=== PATIENT | female | born 2005 | race Two or more races ===

== ENCOUNTER 2025-08-02 16:20 | Inpatient (IN) | payer OTHER ==
[~2025-08-02] VITALS: Ht 147.3 cm; Wt 53.0 kg
[2025-08-02 20:06] LABS: PLATELET COUNT (AUTO) 174 K/uL (150-450); RED BLOOD CELL COUNT(AUTO) 4.46 MIL/uL (4.00-5.20); RED CELL DISTRIBUTION WIDTH 14.0 % (11.5-14.5); WHITE BLOOD COUNT (AUTO) 9.4 K/uL (4.5-11.0)
[2025-08-02 20:19] LABS: CALCIUM, TOTAL 8.9 mg/dL (8.8-10.5); CREATININE 0.54 mg/dL (0.60-1.30); GLOMERULAR FILTR. RATE CALC > 60 mL/min (>60); GLUCOSE,RANDOM 131 mg/dL (70-110); SODIUM SERUM 137 mmol/L (136-145); UREA NITROGEN, BLOOD 6 mg/dL (7-18)
[2025-08-02] MEDS ORDERED: ZOLPIDEM TARTRATE 5 MG TABLET PO PRN (23:45)
[2025-08-02] MEDS ORDERED: HYDROCODONE/ACETAMINOPHEN 5-325 MG TABLET PO PRN (23:45)
[2025-08-02] MEDS ORDERED: ONDANSETRON HCL 4 MG/2 ML VIAL IVP PRN (23:45)
[2025-08-02] MEDS ORDERED: BISACODYL 10 MG RECTAL RECTAL SUPPOSITORY PR PRN (23:45)
[2025-08-02] MEDS ORDERED: ACETAMINOPHEN 325 MG TABLET PO PRN (23:45)
[2025-08-02] MEDS ORDERED: MAGNESIUM HYDROXIDE SUSPENSION 30 ML UDCUP PO PRN (23:45)
[2025-08-02] MEDS ORDERED: MORPHINE SULFATE 4 MG/ML VIAL IVP PRN (23:45)
[2025-08-02] MEDS: HEPARIN SODIUM,PORCINE 5,000 UNITS/ML VIAL SQ SCH (23:50)
[2025-08-03] VITALS (9 sets, daily range): BP systolic 91–103; BP diastolic 56–67; PULSE 57–78; RESP 16–18; TEMP 98.1–98.8; O2SAT 97–100
[2025-08-03] MEDS ORDERED: SODIUM CHLORIDE 3% 15 ML NEB SOLUTION NEB ONE (04:50)
[2025-08-03] MEDS: DOCUSATE SODIUM 100 MG CAPSULE PO SCH (08:57)
[2025-08-03] MEDS: PANTOPRAZOLE SODIUM 40 MG DR TABLET PO SCH (08:58)
[2025-08-03 14:37] LABS: MTB PCR w/Rif. Resistance-SPUT NOT DETECTED (Not Detectd)
[2025-08-04] VITALS (9 sets, daily range): BP systolic 65–99; BP diastolic 49–60; PULSE 59–80; RESP 16–19; TEMP 97.9–98.6; O2SAT 99–100
[2025-08-04] MEDS ORDERED: SODIUM CHLORIDE 3% 15 ML NEB SOLUTION NEB ONE (01:56)
[2025-08-04 05:54] LABS: PLATELET COUNT (AUTO) 156 K/uL (150-450); RED BLOOD CELL COUNT(AUTO) 4.19 MIL/uL (4.00-5.20); RED CELL DISTRIBUTION WIDTH 13.8 % (11.5-14.5); WHITE BLOOD COUNT (AUTO) 8.4 K/uL (4.5-11.0)
[2025-08-04 06:20] LABS: CALCIUM, TOTAL 8.5 mg/dL (8.8-10.5); CREATININE 0.46 mg/dL (0.60-1.30); GLOMERULAR FILTR. RATE CALC > 60 mL/min (>60); GLUCOSE,RANDOM 75 mg/dL (70-110); SODIUM SERUM 137 mmol/L (136-145); UREA NITROGEN, BLOOD 10 mg/dL (7-18)
[2025-08-04] MEDS: RINGERS SOLUTION,LACTATED 1,000 ML IV ONE (13:12)
[2025-08-05] VITALS (8 sets, daily range): BP systolic 82–125; BP diastolic 48–81; PULSE 57–75; RESP 17–19; TEMP 97.3–98.8; O2SAT 98–100
[2025-08-05] MEDS: SODIUM CHLORIDE 0.9% 1,000 ML IV ONE (00:25)
[2025-08-05 00:43] LABS: MTB PCR w/Rif. Resistance-SPUT NOT DETECTED (Not Detectd)
[2025-08-05] MEDS: RINGERS SOLUTION,LACTATED 1,000 ML IV ONE (22:25)
[2025-08-06] VITALS (8 sets, daily range): BP systolic 81–106; BP diastolic 43–60; PULSE 49–69; RESP 16–18; TEMP 98–98.6; O2SAT 97–100
[2025-08-06 01:05] LABS: APPEARANCE,URINE CLEAR (CLEAR); GLUCOSE, URINE (UA) NEGATIVE (NEGATIVE); LEUKOCYTE ESTERASE ,URINE SMALL (NEGATIVE); NITRATE,URINE NEGATIVE (NEGATIVE); OCCULT BLOOD,URINE NEGATIVE (NEGATIVE); SPECIFIC GRAVITIY, URINE 1.021 (1.003-1.030)
[2025-08-06 01:06] LABS: SQUAMOUS EPITHELIAL CELL,UR Few /LPF (None Seen)
[2025-08-06] MEDS: RINGERS SOLUTION,LACTATED 500 ML IV ONE (02:03)
[2025-08-06 06:27] LABS: CALCIUM, TOTAL 8.4 mg/dL (8.8-10.5); CREATININE 0.45 mg/dL (0.60-1.30); GLOMERULAR FILTR. RATE CALC > 60 mL/min (>60); GLUCOSE,RANDOM 75 mg/dL (70-110); SODIUM SERUM 137 mmol/L (136-145); UREA NITROGEN, BLOOD 8 mg/dL (7-18)
[2025-08-06 07:03] LABS: PLATELET COUNT (AUTO) 147 K/uL (150-450); RED BLOOD CELL COUNT(AUTO) 4.21 MIL/uL (4.00-5.20); RED CELL DISTRIBUTION WIDTH 13.6 % (11.5-14.5); WHITE BLOOD COUNT (AUTO) 7.8 K/uL (4.5-11.0)
[2025-08-06] MEDS ORDERED: SODIUM CHLORIDE 0.9% 500 ML IV ONE (08:37)
[2025-08-06] MEDS: MIDODRINE HCL 2.5 MG TABLET PO SCH (08:41)
[2025-08-06] MEDS: CefTRIAXone 1 GM/DEXTROSE 50 ML IV ONE (08:42)
[2025-08-06 19:06] LABS: QUANTIFERON+, Nil Value 0.03 IU/mL; QUANTIFERON+,Mitogen Value >10.00 IU/mL; QUANTIFERON+,TB1 Antigen Value 0.02 IU/mL; QUANTIFERON+,TB2 Antigen Value 0.02 IU/mL; QUANTIFERON, TB GOLD PLUS Negative (Negative)
[2025-08-07 08:28] VITALS: BP 85/47; PULSE 55; RESP 18; TEMP 99; O2SAT 97
[2025-08-07] MEDS: RINGERS SOLUTION,LACTATED 1,000 ML IV ONE (10:52)
[2025-08-07 11:55] VITALS: BP 84/48; PULSE 53; RESP 17; TEMP 98.6; O2SAT 98
[2025-08-07] MEDS: CefTRIAXone SODIUM 2 GM in DEXTROSE 5%-WATER 50 ML IV SCH (13:14)
[2025-08-07] MEDS: MAGNESIUM SULFATE 2 GM/WATER 50 ML IV ONE (14:16)
[2025-08-07 15:53] VITALS: BP 80/45; PULSE 54; RESP 18; TEMP 98.4; O2SAT 100
[2025-08-07] MEDS: MIDODRINE HCL 2.5 MG TABLET PO SCH (16:11)
[2025-08-07 20:18] VITALS: BP 90/55; PULSE 57; RESP 17; TEMP 97.3; O2SAT 99
[2025-08-08 00:18] VITALS: BP 82/50; PULSE 51; RESP 17; TEMP 98.6; O2SAT 100
[2025-08-08 05:09] VITALS: BP 87/52; PULSE 52; RESP 17; TEMP 98.8; O2SAT 98
[2025-08-08 06:21] LABS: PLATELET COUNT (AUTO) 153 K/uL (150-450); RED BLOOD CELL COUNT(AUTO) 4.16 MIL/uL (4.00-5.20); RED CELL DISTRIBUTION WIDTH 13.4 % (11.5-14.5); WHITE BLOOD COUNT (AUTO) 7.2 K/uL (4.5-11.0)
[2025-08-08 06:36] LABS: CALCIUM, TOTAL 8.1 mg/dL (8.8-10.5); CREATININE 0.45 mg/dL (0.60-1.30); GLOMERULAR FILTR. RATE CALC > 60 mL/min (>60); GLUCOSE,RANDOM 75 mg/dL (70-110); SODIUM SERUM 137 mmol/L (136-145); UREA NITROGEN, BLOOD 6 mg/dL (7-18)
[2025-08-08 08:19] VITALS: BP 99/50; PULSE 60; RESP 18; TEMP 98.4; O2SAT 97
[2025-08-08] MEDS: PRENATAL NO.137/IRON/FOLIC ACID TABLET PO SCH (11:27)
[2025-08-08 11:55] VITALS: BP 101/52; PULSE 53; RESP 19; TEMP 98.8; O2SAT 98
[2025-08-08] MEDS: MIDODRINE HCL 5 MG TABLET PO SCH (16:08)
[2025-08-08 16:22] VITALS: BP 114/64; PULSE 66; RESP 18; TEMP 98.6; O2SAT 98
[2025-08-08 19:54] VITALS: BP 88/51; PULSE 60; RESP 18; TEMP 99; O2SAT 98
[2025-08-09 00:14] VITALS: BP 103/52; PULSE 51; RESP 16; TEMP 98.4; O2SAT 99
[2025-08-09 04:40] VITALS: BP 82/45; PULSE 56; RESP 18; TEMP 98.6; O2SAT 99
[2025-08-09 05:14] VITALS: BP 103/54; RESP 16; O2SAT 99
[2025-08-09 08:27] VITALS: BP 90/47; PULSE 55; RESP 17; TEMP 98.2; O2SAT 99
[2025-08-09] MEDS ORDERED: MIDO5TAB29 PO (09:54)
[2025-08-09] MEDS ORDERED: PREN-217 PO (09:54)
[2025-08-09 11:40] VITALS: BP 94/60; PULSE 51; RESP 17; TEMP 98.4; O2SAT 100
== END 2025-08-09 12:35 | DRG 832 ==
LOC: EMS 16:20 → EDH 23:39 → 5N 08-03 03:31
PROVIDERS: ADMIT Internal Medicine; ATTEND Internal Medicine
DX: O23.41 Unspecified infection of urinary tract in pregnancy, first trimester (principal); N39.0 Urinary tract infection, site not specified; O99.281 Endocrine, nutritional and metabolic diseases complicating pregnancy, first trimester; O26.51 Maternal hypotension syndrome, first trimester; Z3A.12 12 weeks gestation of pregnancy; E87.6 Hypokalemia; Z20.1 Contact with and (suspected) exposure to tuberculosis
CPT/HCPCS: 71045; 76801; 80048; 81001; 83735; 84439; 84443; 84702; 84703; 85025; 86480; 87015; 87086; 87206; 87389; 87556; 93306; 94640; 99285; G0378; J0696; J1644; J3475; J7030; J7040; J7060; J7120; 36415-L1; 36415-TC